=== PATIENT | male | born 1975 | race Two or more races ===

== ENCOUNTER 2017-01-06 11:11 | Outpatient (CLI) | payer BC | END 2017-01-06 23:59 | disposition home or self-care (01) | LOC: MRI 11:11 | PROVIDERS: ATTEND Legal Medicine | DX: G31.89 Other specified degenerative diseases of nervous system (principal) | CPT/HCPCS: 70551-TC ==

== ENCOUNTER 2017-11-07 11:45 | Outpatient (CLI) | payer BC | END 2017-11-07 23:59 | disposition home or self-care (01) | LOC: MRI 11:45 | PROVIDERS: ATTEND Legal Medicine | DX: M19.011 Primary osteoarthritis, right shoulder (principal) | CPT/HCPCS: 73221-TC ==

== ENCOUNTER 2018-01-13 07:55 | Outpatient (CLI) | payer BC ==
[2018-01-13] MEDS ORDERED: GADODIAMIDE 2.5 MMOL/5 ML VIAL IJ ONE (07:56)
== END 2018-01-13 23:59 | disposition home or self-care (01) ==
LOC: MRI 07:55
PROVIDERS: ATTEND Legal Medicine
DX: M79.81 Nontraumatic hematoma of soft tissue (principal)
CPT/HCPCS: 73720-TC

== ENCOUNTER 2018-08-01 07:08 | Outpatient (CLI) | payer BC ==
[2018-08-01 09:47] LABS: BASOPHILS % (AUTO) 0.4 % (0.0-2.0); EOSINOPHILS % (AUTO) 2.7 % (0.0-6.0); HEMATOCRIT 48 % (39-51); HEMOGLOBIN 16.2 g/dL (13.5-17.5); LYMPHOCYTES # (AUTO) 2.8 /CMM (0.8-4.8); LYMPHOCYTES % (AUTO) 35.9 % (20.0-44.0); MEAN CORPUSCULAR HGB CONC 34 g/dl (31.0-36.0); MEAN CORPUSCULAR VOLUME 90 fL (80-96); MONOCYTES # (AUTO) 0.6 /CMM (0.1-1.30); MONOCYTES % (AUTO) 7.2 % (2.0-12.0); NEUTROPHILS # (AUTO) 4.2 /CMM (1.8-8.9); NEUTROPHILS % (AUTO) 53.8 % (43.0-81.0); PLATELET COUNT (AUTO) 190 /CMM (150-450); RED BLOOD CELL COUNT(AUTO) 5.27 MIL/uL (4.5-6.0); WHITE BLOOD COUNT (AUTO) 7.9 K/uL (4.3-11.0)
[2018-08-01 09:58] LABS: ALBUMIN 4.1 g/dL (3.4-5.0); BILIRUBIN,TOTAL 0.6 mg/dL (0.2-1.0); CALCIUM, SERUM 8.7 mg/dL (8.5-10.1); POTASSIUM 3.7 mmol/L (3.5-5.1); TOTAL PROTEIN, SERUM 7.1 g/dL (6.4-8.2)
[2018-08-01 10:11] LABS: FREE T4 (FREE THYROXINE) 1.22 ng/dL (0.76-1.46); THYROID STIMULATING HORMONE 1.429 uIU/mL (0.358-3.74)
[2018-08-01 10:17] LABS: APPEARANCE,URINE CLEAR (CLEAR); BILIRUBIN,URINE NEGATIVE (NEGATIVE); BLOOD, URINE NEGATIVE Ery/uL (NEGATIVE); COLOR,URINE YELLOW (YELLOW); KETONES,URINE NEGATIVE (NEGATIVE); LEUKOCYTE ESTERASE ,URINE NEGATIVE (NEGATIVE); NITRITE, URINE NEGATIVE (NEGATIVE); PH,URINE 5.5 (5.0-8.0); PROTEIN,URINE NEGATIVE (NEGATIVE); UGLUCOSE NEGATIVE (NEGATIVE); UROBILINOGEN,URINE 0.2 EU/dL (0.2)
== END 2018-08-01 23:59 | disposition home or self-care (01) ==
LOC: LAB 07:08
PROVIDERS: ATTEND Legal Medicine
DX: Z00.00 Encounter for general adult medical examination without abnormal findings (principal); I10 Essential (primary) hypertension; D64.9 Anemia, unspecified; E03.9 Hypothyroidism, unspecified; R30.0 Dysuria
CPT/HCPCS: 36415; 80053-TC; 80061-TC; 81000-TC; 82306; 82626; 84402; 84403; 84439-TC; 84443-TC; 85025-TC; 86592; 86694; 86695; 87086-TC; 87491; 87591; 87806

== ENCOUNTER 2018-08-20 11:06 | Emergency (ER) | payer BC ==
[~2018-08-20] VITALS: Ht 180.3 cm; Wt 76.2 kg
[2018-08-20 11:06] VITALS: BP 157/108
[2018-08-20] MEDS ORDERED: CIPROFLOXACIN HCL 500 MG TABLET ONE (11:28)
[2018-08-20] MEDS ORDERED: CIPROFLOXACIN HCL 500 MG TABLET PO ONE (11:30)
--- NOTE | 2018-08-20 11:39 | NUR ---
Patient discharged to home in stable condition. Written and verbal after care instructions given. Patient verbalizes understanding of instruction.
== END 2018-08-20 11:39 | disposition home or self-care (01) ==
LOC: ER 11:06
DX: Z20.811 Contact with and (suspected) exposure to meningococcus (principal)

== ENCOUNTER 2019-07-10 08:55 | Outpatient (CLI) | payer BC ==
[2019-07-10 10:24] LABS: ALBUMIN 4.1 g/dL (3.4-5.0); CALCIUM, SERUM 9.2 mg/dL (8.5-10.1); TOTAL PROTEIN, SERUM 7.2 g/dL (6.4-8.2)
[2019-07-10 10:29] LABS: BASOPHILS % (AUTO) 0.6 % (0.0-2.0); EOSINOPHILS % (AUTO) 3.2 % (0.0-6.0); HEMATOCRIT 47 % (39-51); HEMOGLOBIN 16.2 g/dL (13.5-17.5); LYMPHOCYTES # (AUTO) 3.1 /CMM (0.8-4.8); LYMPHOCYTES % (AUTO) 39.6 % (20.0-44.0); MEAN CORPUSCULAR HGB CONC 35 g/dl (31.0-36.0); MEAN CORPUSCULAR VOLUME 88 fL (80-96); MONOCYTES # (AUTO) 0.6 /CMM (0.1-1.30); MONOCYTES % (AUTO) 7.5 % (2.0-12.0); NEUTROPHILS # (AUTO) 3.8 /CMM (1.8-8.9); NEUTROPHILS % (AUTO) 49.1 % (43.0-81.0); PLATELET COUNT (AUTO) 214 /CMM (150-450); WHITE BLOOD COUNT (AUTO) 7.8 K/uL (4.3-11.0)
[2019-07-10 10:32] LABS: APPEARANCE,URINE SL CLOUDY (CLEAR); BILIRUBIN,URINE NEGATIVE (NEGATIVE); BLOOD, URINE NEGATIVE Ery/uL (NEGATIVE); COLOR,URINE YELLOW (YELLOW); KETONES,URINE NEGATIVE (NEGATIVE); LEUKOCYTE ESTERASE ,URINE NEGATIVE (NEGATIVE); NITRITE, URINE NEGATIVE (NEGATIVE); PH,URINE 5.5 (5.0-8.0); PROTEIN,URINE NEGATIVE (NEGATIVE); UGLUCOSE NEGATIVE (NEGATIVE); UROBILINOGEN,URINE 0.2 EU/dL (0.2)
[2019-07-10 10:37] LABS: THYROID STIMULATING HORMONE 1.133 uIU/mL (0.358-3.74); URIC ACID 6.6 mg/dL (2.6-7.2)
[2019-07-11 12:08] LABS: FOLIC ACID 12.3 ng/mL (>3.0)
[2019-07-13 21:10] LABS: *AREA 13 IGE,TOTAL 5 IU/mL (6-495); IMMUNOGLOBULIN E,TOTAL 5 IU/mL (6-495)
== END 2019-07-10 23:59 | disposition home or self-care (01) ==
LOC: LAB 08:55
PROVIDERS: ATTEND Legal Medicine
DX: Z00.00 Encounter for general adult medical examination without abnormal findings (principal)
CPT/HCPCS: 36415; 80053-TC; 80061-TC; 81000-TC; 82306; 82728-TC; 82785; 83540-TC; 84402; 84403; 84439-TC; 84443-TC; 84550-TC; 85025-TC; 86003

== ENCOUNTER 2019-11-16 11:09 | Outpatient (CLI) | payer BC | END 2019-11-16 23:59 | disposition home or self-care (01) | LOC: MRI 11:09 | PROVIDERS: ATTEND Legal Medicine | DX: M48.07 Spinal stenosis, lumbosacral region (principal); M12.88 Other specific arthropathies, not elsewhere classified, other specified site; M40.46 Postural lordosis, lumbar region; M54.5 Low back pain | CPT/HCPCS: 72148-TC ==

== ENCOUNTER 2021-08-25 13:10 | Outpatient (CLI) | payer BC | END 2021-08-25 23:59 | disposition home or self-care (01) | LOC: MRI 13:10 | PROVIDERS: ATTEND Legal Medicine | DX: S83.241A Other tear of medial meniscus, current injury, right knee, initial encounter (principal); M25.511 Pain in right shoulder; X58.XXXA Exposure to other specified factors, initial encounter; Y93.89 Activity, other specified; Y92.89 Other specified places as the place of occurrence of the external cause; Y99.8 Other external cause status | CPT/HCPCS: 73221-TC; 73721-TC ==